=== PATIENT | female | born 1930 | race Caucasian/White ===

== ENCOUNTER → 2017-06-10 | Outpatient (CLI) | payer MEDICARE, BC ==
--- NOTE | 2017-06-10 13:10 | XR ---
EXAMINATION TYPE: XR Hip Complete LT DATE OF EXAM: 06/10/2017 COMPARISON: NONE HISTORY: Pain TECHNIQUE: 2 views submitted FINDINGS: There is no evidence of erosive change or acute fracture. Axial narrowing of the joint space. Hypertrophic change of the acetabulum. Calcifications in pelvis a ppear vascular. IMPRESSION: 1. Moderate arthropathy with no evidence of erosive changes.
== END | disposition home or self-care (01) ==
LOC: RADXRMAIN 12:47
PROVIDERS: ATTEND Internal Medicine Geriatric Medicine
DX: M16.12 Unilateral primary osteoarthritis, left hip (principal)
CPT/HCPCS: 73502

== ENCOUNTER → 2017-08-03 | Outpatient (CLI) | payer MEDICARE, BC ==
[2017-08-03 16:13] LABS: HCT 38.2 % (34.0-46.0); HGB 13.2 gm/dL (11.4-16.0); MCH 30.1 pg (25.0-35.0); MCHC 34.5 g/dL (31.0-37.0); MCV 87.3 fL (80.0-100.0); Platelet Count 236 k/uL (150-450); RBC 4.37 m/uL (3.80-5.40)
[2017-08-03 16:26] LABS: Albumin 4.3 g/dL (3.5-5.0); Calcium 9.9 mg/dL (8.4-10.2); Total Bilirubin 0.6 mg/dL (0.2-1.3); Total Protein 7.3 g/dL (6.3-8.2)
== END | disposition home or self-care (01) ==
LOC: LABWHC1 15:49
PROVIDERS: ATTEND Internal Medicine Interventional Cardiology
DX: I25.10 Atherosclerotic heart disease of native coronary artery without angina pectoris (principal)
CPT/HCPCS: 36415; 80053; 85027

== ENCOUNTER 2017-09-10 14:47 | Emergency (ER) | payer MEDICARE, BC ==
[2017-09-10] MEDS ORDERED: HYDROcodone/APAP 5-325MG 1 EACH TAB PO STA (15:27)
[2017-09-10] MEDS ORDERED: ORPHENADRINE 30 MG/ML 2 ML VIAL IM STA (15:27)
[2017-09-10] MEDS ORDERED: DEXAMETHASONE SOD PHOSPHATE 10 MG/ML 1 ML VIAL IM STA (15:27)
--- NOTE | 2017-09-10 15:50 | ED ---
General Adult HPI - General Chief complaint: Back Pain/Injury Stated complaint: Hip pain Time Seen by Provider: 09/10/17 15:08 Source: patient, RN notes reviewed, old records reviewed Mode of arrival: wheelchair Limitations: no limitations - History of Present Illness Initial comments: This Patient is an 86-year-old female with history of chronic back pain, she reports that she's previously seen Dr. Warner in the past for sciatica. Patient states that she over the past few weeks has been developing worsening pain. She's been taking tramadol for relief of her pain. Patient reports that she has had no abdominal pain. Denies any saddle anesthesias. Pain is worse with range of motion. Patient states that she has had no falls or trauma. She did go to a chiropractor to help with her back pain however she reports seemed like it seemed worse afterwards.Patient denies any recent fever, chills, shortness of breath, chest pain, back pain, abdominal pain, nausea vomiting, numbness or tingling, dysuria or hematuria, constipation or diarrhea, headaches or visual changes, or any other current symptoms - Related Data Previous Rx's Medication Instructions Recorded Cyclobenzaprine [Flexeril] 5 mg PO TID #10 tablet 09/10/17 HYDROcodone/APAP 5-325MG [Maben 1 tab PO Q6HR PRN #10 tab 09/10/17 5-325] Allergies Allergy/AdvReac Type Severity Reaction Status Date / Time Iysawxa-Szf-Nim Reductase AdvReac Unknown Verified 09/10/17 14:59 Inhibitor Review of Systems ROS Statement: Those systems with pertinent positive or pertinent negative responses have been documented in the HPI. ROS Other: All systems not noted in ROS Statement are negative. Past Medical History Additional Past Medical History / Comment(s): back pain History of Any Multi-Drug Resistant Organisms: None Reported Past Surgical History: Bowel Resection, Hysterectomy Past Psychological History: No Psychological Hx Reported Smoking Status: Never smoker Past Alcohol Use History: Occasional Past Drug Use History: None Reported General Exam - General Exam Comments Initial Comments: This patient's an 86-year-old female. Alert and oriented. No acute distress. Limitations: no limitations General appearance: alert, in no apparent distress Head exam: Present: atraumatic, normocephalic, normal inspection Eye exam: Present: normal appearance ENT exam: Present: normal exam Neck exam: Present: normal inspection. Absent: tenderness, meningismus, lymphadenopathy Respiratory exam: Present: normal lung sounds bilaterally. Absent: respiratory distress, wheezes, rales, rhonchi, stridor Cardiovascular Exam: Present: regular rate, normal rhythm, normal heart sounds. Absent: systolic murmur, diastolic murmur, rubs, gallop, clicks GI/Abdominal exam: Present: soft, normal bowel sounds. Absent: distended, tenderness, guarding, rebound, rigid Extremities exam: Present: normal inspection, full ROM, normal capillary refill. Absent: tenderness, pedal edema, joint swelling, calf tenderness Back exam: Present: normal inspection, tenderness (Patient's lumbar spinal tenderness.), other (Patient is neurovascularly intact in distal extremities. Less than 2 second capillary refill. Normal 2+ dorsalis pedis and posterior tibial pulse bilaterally.) Neurological exam: Present: alert, oriented X3, CN II-XII intact Psychiatric exam: Present: normal affect, normal mood Skin exam: Present: warm, dry, intact, normal color. Absent: rash Course Vital Signs 09/10/17 14:56 Temperature 98.2 F Pulse Rate 100 Respiratory 18 Rate Blood Pressure 117/74 O2 Sat by Pulse 95 Oximetry Medical Decision Making - Medical Decision Making A 6-year-old female presents to the lower back pain. She reports going on for few weeks. Worse with movement. She does have some tenderness of her lumbar spine. X-rays were completed. X-rays do show evidence of multiple severe degenerative disc disease as well as anterolisthesis L4-L5. Patient was given IM Decadron and Norflex. One by mouth Maben. I informed Patient of the results of the x-rays. I discussed that she does have significant degenerative disc disease. She was falling up with her back specialist on Wednesday. I will give the Patient a few pain pills and between now and then. Patient history plan will comply. Return parameters were discussed. - Radiology Data Radiology results: report reviewed Scoliotic curvature with severe multilevel degenerative disc disease and facet arthropathy. Grade 1 anterolisthesis L4-L5 and L5-S1. Disposition Clinical Impression: Anterolisthesis, DDD (degenerative disc disease), lumbar Disposition: HOME SELF-CARE Condition: Good Instructions: Chronic Back Pain (ED) Additional Instructions: Patient is advised follow-up with your spinal specialist. Take the medication as prescribed. Follow-up with primary care physician. Return to emergency department if any alarming signs or symptoms occur. Prescriptions: Cyclobenzaprine [Flexeril] 5 mg PO TID #10 tablet HYDROcodone/APAP 5-325MG [Maben 5-325] 1 tab PO Q6HR PRN #10 tab PRN Reason: Pain Is patient prescribed a controlled substance at d/c from ED?: Yes When asked, does pt state using other controlled substances?: Yes If prescribed controlled substance>3 days was MAPS reviewed?: Prescribed <3 Days If opioid is for acute pain is fill amount 7 days or less?: Yes If Rx opioid, was Start Talking consent form obtained?: Yes Referrals: Roge García MD [Primary Care Provider] - 1-2 days Time of Disposition: 16:12
--- NOTE | 2017-09-10 16:03 | XR ---
EXAM TYPE: LUMBAR SPINE X RAY SERIES COMPARISON: NONE HISTORY: Pain TECHNIQUE: 4 views are submitted. FINDINGS: Alignment is anatomic. The pedicles are intact. The transverse processes are intact. Scoliotic cur vature with some vascular calcifications noted. There is a grade 1 anterolisthesis of L4 on L5. Sever e degenerative disc disease at virtually all levels with severe facet arthropathy L4-5 and L5-S1. Gra de 1 anterolisthesis of L5 relative to S1. There is a 3 mm retrolisthesis of L2 relative to L3. Arthr opathy of the interspinous distances noted compatible with [place]'s disease. IMPRESSION: 1. Scoliotic curvature with severe multilevel degenerative disc disease and facet arthropathy. Grade 1 anterolisthesis of L4 on L5 and L5 on S1.
[2017-09-10 16:35] VITALS: BP 137/76; PULSE 91; RESP 16; TEMP 98.7
== END 2017-09-10 16:34 | disposition home or self-care (01) ==
LOC: EC 14:47
DX: M51.36 Other intervertebral disc degeneration, lumbar region (principal); M43.16 Spondylolisthesis, lumbar region; Z88.8 Allergy status to other drugs, medicaments and biological substances
CPT/HCPCS: 72100; 99284; 96372 ×2; J1100; J2360

== ENCOUNTER 2017-10-01 12:10 | Day surgery (SDC) | payer MEDICARE, BC ==
[2017-09-29 09:43] VITALS: BMI 19.8
[~2017-10-01 12:10] MED LIST: LACTATED RINGERS 1,000 ML IV SCH; LIDOCAINE 1% 20 ML VIAL (10MG/ML) FOR IV START INTRADERMA PRN; MIDAZOLAM 2 MG/2 ML VIAL IV PRN
[2017-10-01 13:11] VITALS: RESP 16; TEMP 98.3
[2017-10-01] MEDS ORDERED: PROPOFOL 10 MG/ML 20 ML VIAL IV ONE (13:48)
[2017-10-01] MEDS ORDERED: LIDOCAINE 1% INJ 10MG/ML (20 ML MDV) ONE (13:48)
--- NOTE | 2017-10-01 14:01 | P.PCN ---
Date of Procedure: 10/01/17 Procedure(s) Performed: BRIEF HISTORY: Patient is a 87-year-old, pleasant, white female, scheduled for an upper endoscopy as a part of evaluation of long-standing history of GERD intermittent nausea for the last few months duration. She is been on omeprazole 40 mg daily which helps the heartburn but not nausea. He denies any emesis. No recent weight loss. In view of the persistent nausea she is scheduled for an upper endoscopy to evaluate further. PROCEDURE PERFORMED: Esophagogastroduodenoscopy with biopsy. PREOPERATIVE DIAGNOSIS: Long-standing history of GERD/persistent nausea. IV sedation per anesthesia. PROCEDURE: After informed consent was obtained, the patient was brought into the endoscopy unit. IV sedation was administered by Anesthesia under continuous monitoring. Initially the Olympus GIF-140 video endoscope was inserted into the mouth. Esophagus intubated without any difficulty. It was gradually advanced into the stomach and duodenum and carefully examined. The bulb and the second part of the duodenum appeared normal. Biopsies were done to evaluate for celiac disease The scope at this time was withdrawn to the stomach, adequately insufflated with air, and upon careful examination, mucosa of the antrum, patchy areas of erythema and biopsies were done from this area. The body, cardia and the fundus appeared normal. The scope was then withdrawn into the esophagus. The GE junction was located at 30 cm from the incisors. There was a moderate to large paraesophageal hiatal hernia noted. The GE junction appeared regular with no erythema erosions or ulcerations. The esophagus appeared normal. There were no erosions or ulcerations seen and the patient tolerated the procedure well. IMPRESSION: 1. Large paraesophageal hiatal hernia. 2. Mild antral gastritis. RECOMMENDATIONS: The findings of this examination were discussed with the patient as well as her family. She will follow with the biopsy results. She was advised to continue with omeprazole 40 mg daily and follow antireflux measures.
[2017-10-01 14:32] VITALS: BP 149/77; PULSE 82
== END 2017-10-01 14:54 | disposition home or self-care (01) ==
LOC: ORWHC2ENDO 12:10
PROVIDERS: ATTEND Internal Medicine Gastroenterology
DX: K21.0 Gastro-esophageal reflux disease with esophagitis (principal); K29.50 Unspecified chronic gastritis without bleeding; K44.9 Diaphragmatic hernia without obstruction or gangrene; I34.1 Nonrheumatic mitral (valve) prolapse; I10 Essential (primary) hypertension; Z88.8 Allergy status to other drugs, medicaments and biological substances; Z79.899 Other long term (current) drug therapy; Z90.49 Acquired absence of other specified parts of digestive tract; Z90.710 Acquired absence of both cervix and uterus
CPT/HCPCS: 43239; J2001; J2704; 88305

== ENCOUNTER → 2017-10-29 | Outpatient (CLI) | payer MEDICARE, BC | END | disposition home or self-care (01) | LOC: LABWHC1 08:58 | PROVIDERS: ATTEND Internal Medicine Gastroenterology | DX: R11.0 Nausea (principal) | CPT/HCPCS: 36415; 82533 ==

== ENCOUNTER 2018-05-23 11:03 | Emergency (ER) | payer MEDICARE, BC ==
[2018-05-23 11:20] VITALS: RESP 18
[2018-05-23] MEDS ORDERED: SODIUM CHLORIDE 0.9% 1,000 ML IV STA (12:19)
[2018-05-23] MEDS ORDERED: DIPH,PERTUS(ACELL)TETVAC-LF 0.5 ML VIAL IM ONE (12:20)
[2018-05-23 12:31] LABS: Basophils % (A) 0 %; Eosinophils # (A) 0.2 k/uL (0-0.7); Eosinophils % (A) 2 %; HCT 40.9 % (34.0-46.0); HGB 13.6 gm/dL (11.4-16.0); Lymphocytes # (A) 1.2 k/uL (1.0-4.8); Lymphocytes % (A) 14 %; MCH 29.6 pg (25.0-35.0); MCHC 33.1 g/dL (31.0-37.0); MCV 89.4 fL (80.0-100.0); Mean Platelet Volume 6.3; Monocytes # (A) 0.5 k/uL (0-1.0); Monocytes % (A) 6 %; Neutrophils # (A) 7.1 k/uL (1.3-7.7); Neutrophils % (A) 78 %; Platelet Count 240 k/uL (150-450); RBC 4.58 m/uL (3.80-5.40); RDW 14.3 % (11.5-15.5); WBC 9.1 k/uL (3.8-10.6)
[2018-05-23 12:42] LABS: Partial Thromboplastin Time 24.5 sec (22.0-30.0); Prothrombin Time 10.3 sec (9.0-12.0)
[2018-05-23 12:45] LABS: ALT 29 U/L (9-52); AST 23 U/L (14-36); Albumin 3.9 g/dL (3.5-5.0); Alkaline Phosphatase 84 U/L (38-126); Anion Gap 4 mmol/L; Blood Urea Nitrogen 17 mg/dL (7-17); Calcium 9.9 mg/dL (8.4-10.2); Carbon Dioxide 34 mmol/L (22-30); Chloride 96 mmol/L (98-107); Glucose 118 mg/dL (74-99); Sodium 134 mmol/L (137-145); Total Bilirubin 1.2 mg/dL (0.2-1.3); Total Protein 6.8 g/dL (6.3-8.2)
--- NOTE | 2018-05-23 12:55 | XR ---
EXAMINATION TYPE: XR chest 2V DATE OF EXAM: 05/23/2018 COMPARISON: None HISTORY: 87-year-old female syncope TECHNIQUE: AP and lateral views FINDINGS: The heart appears mildly enlarged. Additional rounded retrocardiac opacity is present. Atheroscleroti c arch calcifications. Hyperinflation with increased retrosternal clear space. No sizable pleural eff usion seen. No jackie consolidation. IMPRESSION: COPD. There seems to be an underlying large hiatal hernia probably with most of the stomach in the lo wer chest. No definite acute process otherwise seen.
--- NOTE | 2018-05-23 12:57 | XR ---
EXAMINATION TYPE: XR forearm LT DATE OF EXAM: 05/23/2018 COMPARISON: NONE HISTORY: 87-year-old female with pain after fall TECHNIQUE: 2 views FINDINGS: No acute fracture or dislocation seen. There is a severely small corticated loose body measuring 3 mm along the volar aspect of the radiocarpal joint. No elbow joint effusion. No acute fracture or dislo cation seen. Generalized tissue atrophy. End-stage degenerative change of the base of the thumb. Some synovial calcification at the wrist and TFC calcifications could be idiopathic or could reflect CPPD . IMPRESSION: No acute osseous abnormality seen. End-stage degenerative change at the base of the thumb. Generalize d tissue atrophy.
--- NOTE | 2018-05-23 12:58 | CT ---
EXAMINATION TYPE: CT brain franklin lopez DATE OF EXAM: 05/23/2018 COMPARISON: None HISTORY: fall, large contusion and laceration above left eye, pain, syncope CT DLP: 1195.7 mGycm Automated exposure control for dose reduction was used. TECHNIQUE: CT scan of the head and cervical spine are performed without contrast. FINDINGS: There is no acute intracranial hemorrhage, mass effect, or midline shift identified. The ventricles and sulci are within normal limits in size. The globes are intact and the visualized sin uses are clear. There is a large cephalohematoma present over the left frontal region extending towar ds the convexity. Periventricular white matter shows patchy low attenuation. Cerebral vascular calcif ications are present. Cortical atrophy is likely age-related. Cervical spine is visualized in its entirety from C1 through upper thoracic levels and demonstrates d egenerative disc disease, facet arthropathy, there is multilevel listhesis and spondylosis, anterolis thesis grade 1 4, C5-6, C7-T1. Loss of disc height present at the intervertebral levels C4-5 and C5-6 and C6-7.. Prevertebral soft tissue appears within normal limits. The C1-C2 articulation is unrema rkable. Multilevel facet arthropathy. The level foraminal encroachment noted. Possible thoracic scol iosis noted. Carotid artery calcifications are present. Temporomandibular joints show arthropathy chelsea nge. IMPRESSION: 1. There is no acute fracture or dislocation evident in the cervical spine. 2. No acute intracranial hemorrhage, mass effect, or midline shift is seen.
--- NOTE | 2018-05-23 13:08 | ED ---
Wound/Laceration HPI - General Chief Complaint: Wound/Laceration Stated Complaint: fell/hit head Time Seen by Provider: 05/23/18 11:52 Source: patient, RN notes reviewed, old records reviewed Mode of arrival: wheelchair Limitations: no limitations - History of Present Illness Initial Comments: Patient is a 89-year-old female present today with complaints of slipping and falling hitting her head. She states that she stood up too quickly and felt dizzy. Patient reports she had on the cabinet. Patient has a laceration and contusion of the left side of her forehead. Patient denies any loss of consciousness Patient denies neck pain. She reports that she also hit her left forearm. She denies any other complaints. - Related Data Home Medications Medication Instructions Recorded Confirmed Calcium Carb/Vitamin D3/Vit K1 1 tab PO DAILY 09/29/17 05/23/18 [Citracal Soft Chew] Carvedilol [Coreg] 6.25 mg PO HS 09/29/17 05/23/18 Vit C/E/Zn/Coppr/Lutein/Zeaxan 2 cap PO DAILY 09/29/17 05/23/18 [Preservision Areds 2 Softgel] Aspirin EC [Ecotrin Low Dose] 81 mg PO DAILY 05/23/18 05/23/18 Losartan/Hydrochlorothiazide 1 tab PO DAILY 05/23/18 05/23/18 [Losartan-Hctz 100-25 mg Tab] Meclizine [Antivert] 12.5 mg PO TID PRN 05/23/18 05/23/18 Pantoprazole [Protonix] 40 mg PO DAILY 05/23/18 05/23/18 traMADol HCL [Ultram] 50 mg PO TID PRN 05/23/18 05/23/18 Allergies Allergy/AdvReac Type Severity Reaction Status Date / Time Ozbqyhl-Kuk-Lnk Reductase AdvReac "MAKES ME Verified 05/23/18 12:39 Inhibitor FEEL SICK" Review of Systems ROS Statement: Those systems with pertinent positive or pertinent negative responses have been documented in the HPI. ROS Other: All systems not noted in ROS Statement are negative. Past Medical History Past Medical History: GERD/Reflux, Hypertension Additional Past Medical History / Comment(s): back pain History of Any Multi-Drug Resistant Organisms: None Reported Past Surgical History: Adenoidectomy, Appendectomy, Bowel Resection, Heart Catheterization, Hysterectomy, Tonsillectomy Additional Past Surgical History / Comment(s): COLONOSCOPY. BILAT CATARACT REMOVED Past Anesthesia/Blood Transfusion Reactions: No Reported Reaction Past Psychological History: No Psychological Hx Reported Smoking Status: Never smoker Past Alcohol Use History: Occasional Past Drug Use History: None Reported - Past Family History Mother Family Medical History: No Reported History General Exam - General Exam Comments Initial Comments: 87-year-old female. Alert and oriented. No distress. Limitations: no limitations General appearance: alert, in no apparent distress, other ( is a contusion over her left forehead.) Head exam: Present: atraumatic, normocephalic, normal inspection Eye exam: Present: normal appearance, PERRL, EOMI. Absent: scleral icterus, conjunctival injection, periorbital swelling ENT exam: Present: normal exam, mucous membranes moist Neck exam: Present: normal inspection. Absent: tenderness, meningismus, lymphadenopathy Respiratory exam: Present: normal lung sounds bilaterally. Absent: respiratory distress, wheezes, rales, rhonchi, stridor Cardiovascular Exam: Present: regular rate, normal rhythm, normal heart sounds. Absent: systolic murmur, diastolic murmur, rubs, gallop, clicks GI/Abdominal exam: Present: soft, normal bowel sounds. Absent: distended, tenderness, guarding, rebound, rigid Extremities exam: Present: normal inspection, full ROM, normal capillary refill. Absent: tenderness, pedal edema, joint swelling, calf tenderness Back exam: Present: normal inspection Neurological exam: Present: alert, oriented X3, CN II-XII intact Psychiatric exam: Present: normal affect, normal mood Skin exam: Present: warm, dry, intact, normal color. Absent: rash Course Vital Signs 05/23/18 05/23/18 11:15 14:35 Temperature 98.4 F 98.0 F Pulse Rate 89 82 Respiratory 18 18 Rate Blood Pressure 176/81 154/86 O2 Sat by Pulse 98 97 Oximetry Medical Decision Making - Medical Decision Making 7-year-old female presents today after falling and hitting her head on a cabinet. Patient has a small abrasion over the forehead measuring to 70s. This was cleansed with iodine and closed with Dermabond. CT of the brain and C- spine are negative for acute process. EKG shows no acute changes. Laboratory was unremarkable Patient is given a liter bolus. Discussed that she likely stood up too quickly with this happened. Patient agrees. I discussed if the patient's family Patient felt comfortable to be discharged home with close monitoring with head injury instructions. Family agrees. I discussed strict return parameters. All questions were answered. - Lab Data Result diagrams: 05/23/18 12:14 05/23/18 12:14 Lab Results 05/23/18 05/23/18 05/23/18 Range/Units 12:14 12:14 12:14 WBC 9.1 (3.8-10.6) k/uL RBC 4.58 (3.80-5.40) m/uL Hgb 13.6 (11.4-16.0) gm/dL Hct 40.9 (34.0-46.0) % MCV 89.4 (80.0-100.0) fL MCH 29.6 (25.0-35.0) pg MCHC 33.1 (31.0-37.0) g/dL RDW 14.3 (11.5-15.5) % Plt Count 240 (150-450) k/uL Neutrophils % 78 % Lymphocytes % 14 % Monocytes % 6 % Eosinophils % 2 % Basophils % 0 % Neutrophils # 7.1 (1.3-7.7) k/uL Lymphocytes # 1.2 (1.0-4.8) k/uL Monocytes # 0.5 (0-1.0) k/uL Eosinophils # 0.2 (0-0.7) k/uL Basophils # 0.0 (0-0.2) k/uL PT 10.3 (9.0-12.0) sec INR 1.0 (<1.2) APTT 24.5 (22.0-30.0) sec Sodium 134 L (137-145) mmol/L Potassium 4.0 (3.5-5.1) mmol/L Chloride 96 L (98-107) mmol/L Carbon Dioxide 34 H (22-30) mmol/L Anion Gap 4 mmol/L BUN 17 (7-17) mg/dL Creatinine 0.68 (0.52-1.04) mg/dL Est GFR (CKD-EPI)AfAm >90 (>60 ml/min/1.73 sqM) Est GFR (CKD-EPI)NonAf 78 (>60 ml/min/1.73 sqM) Glucose 118 H (74-99) mg/dL Calcium 9.9 (8.4-10.2) mg/dL Total Bilirubin 1.2 (0.2-1.3) mg/dL AST 23 (14-36) U/L ALT 29 (9-52) U/L Alkaline Phosphatase 84 (38-126) U/L Troponin I (0.000-0.034) ng/mL Total Protein 6.8 (6.3-8.2) g/dL Albumin 3.9 (3.5-5.0) g/dL 05/23/18 Range/Units 12:14 WBC (3.8-10.6) k/uL RBC (3.80-5.40) m/uL Hgb (11.4-16.0) gm/dL Hct (34.0-46.0) % MCV (80.0-100.0) fL MCH (25.0-35.0) pg MCHC (31.0-37.0) g/dL RDW (11.5-15.5) % Plt Count (150-450) k/uL Neutrophils % % Lymphocytes % % Monocytes % % Eosinophils % % Basophils % % Neutrophils # (1.3-7.7) k/uL Lymphocytes # (1.0-4.8) k/uL Monocytes # (0-1.0) k/uL Eosinophils # (0-0.7) k/uL Basophils # (0-0.2) k/uL PT (9.0-12.0) sec INR (<1.2) APTT (22.0-30.0) sec Sodium (137-145) mmol/L Potassium (3.5-5.1) mmol/L Chloride (98-107) mmol/L Carbon Dioxide (22-30) mmol/L Anion Gap mmol/L BUN (7-17) mg/dL Creatinine (0.52-1.04) mg/dL Est GFR (CKD-EPI)AfAm (>60 ml/min/1.73 sqM) Est GFR (CKD-EPI)NonAf (>60 ml/min/1.73 sqM) Glucose (74-99) mg/dL Calcium (8.4-10.2) mg/dL Total Bilirubin (0.2-1.3) mg/dL AST (14-36) U/L ALT (9-52) U/L Alkaline Phosphatase (38-126) U/L Troponin I <0.012 (0.000-0.034) ng/mL Total Protein (6.3-8.2) g/dL Albumin (3.5-5.0) g/dL 05/23/18 15:05 EKG performed at 1225 shows sinus rhythm with occasional PVCs. Ventricular rate of 85 beats were minute. Pulse 154 ms. QRS duration is 104 ms. QT QTC 370/449 ms. - Radiology Data Radiology results: report reviewed No acute fracture dislocation of the cervical spine. No acute intracranial hemorrhage or midline shift seen. Disposition Clinical Impression: Fall, Head injury, Forearm contusion Disposition: HOME SELF-CARE Condition: Good Instructions (If sedation given, give patient instructions): Fall Prevention for Older Adults (ED), Head Injury (ED) Additional Instructions: Patient has have close follow-up with her primary care physician. Patient s hould be monitored for the next 24 hours. There is any signs of altered mental status return to the emergency department at once. Patient should rest, remain hydrated. Keep the wound clean. Is patient prescribed a controlled substance at d/c from ED?: No Referrals: Roge García MD [Primary Care Provider] - 1-2 days Time of Disposition: 14:01
[2018-05-23] MEDS ORDERED: TOPICAL SKIN ADHESIVE 1 EACH AMP TOPICAL ONE (13:40)
[2018-05-23] MEDS ORDERED: ACETAMINOPHEN TAB 500 MG TAB PO STA (14:00)
[2018-05-23] MEDS ORDERED: KETOROLAC 30 MG/ML 1 ML VIAL IVP STA (14:00)
[2018-05-23 14:35] VITALS: BP 154/86; PULSE 82; TEMP 98
--- NOTE | 2018-05-24 08:42 | CDI ---
Documentation Clarification OP Dear Judy LUQUE PA-C, PAC Please provide forehead abrasion repair length. Thank you, Isaiah Rendon Scada Technician If you have any questions, please contact Passenger Service Supervisor at [phone] [facility]
== END 2018-05-23 14:37 | disposition home or self-care (01) ==
LOC: EC 11:03
DX: S00.81XA Abrasion of other part of head, initial encounter (principal); S50.12XA Contusion of left forearm, initial encounter; K21.9 Gastro-esophageal reflux disease without esophagitis; I10 Essential (primary) hypertension; Z95.818 Presence of other cardiac implants and grafts; Z79.82 Long term (current) use of aspirin; Z79.899 Other long term (current) drug therapy; Z88.8 Allergy status to other drugs, medicaments and biological substances; Z23 Encounter for immunization; W01.190A Fall on same level from slipping, tripping and stumbling with subsequent striking against furniture, initial encounter; Y92.009 Unspecified place in unspecified non-institutional (private) residence as the place of occurrence of the external cause
CPT/HCPCS: 99284; 12011; 96374; 96361; 90471; 36415; 93005; 80053; 84484; 85025; 85610; 85730; 73090; 71046; 72125; 70450; 90715; J1885

== ENCOUNTER → 2019-04-24 | Outpatient (CLI) | payer MEDICARE, BC ==
--- NOTE | 2019-04-24 14:07 | XR ---
EXAMINATION TYPE: XR abdomen 2V DATE OF EXAM: 04/24/2019 COMPARISON: NONE HISTORY: Constipation TECHNIQUE: One view abdominal series FINDINGS: The osseous structures are intact. The bowel gas pattern is nonspecific. Lung bases are clear. Denise lar calcifications are seen and there are vascular calcifications. Arthropathy of the hips. Scoliosis with degenerative change of the spine. Air-fluid levels are seen in the right lower abdomen. IMPRESSION: 1. Nonspecific abdomen. Air-fluid in the right lower abdomen and upper pelvis. Correlate for ileus, enteritis although a partial obstruction not entirely excluded.
== END | disposition home or self-care (01) ==
LOC: RADXRMAIN 13:26
PROVIDERS: ATTEND Internal Medicine Geriatric Medicine
DX: K59.00 Constipation, unspecified (principal)
CPT/HCPCS: 74019

== ENCOUNTER 2019-04-28 15:30 | Emergency (ER) | payer MEDICARE, BC ==
[2019-04-28 15:36] VITALS: TEMP 98.1
[2019-04-28] MEDS ORDERED: SODIUM CHLORIDE 0.9% 1,000 ML IV STA (17:14)
--- NOTE | 2019-04-28 17:16 | ED ---
Abdominal Pain HPI - General Chief Complaint: Abdominal Pain Stated Complaint: Abd Pain Time Seen by Provider: 04/28/19 16:30 Source: patient, RN notes reviewed, old records reviewed Mode of arrival: ambulatory Limitations: no limitations - History of Present Illness Initial Comments: This is an 88-year-old female to the ER for evaluation of abdominal pain history of constipation abdominal surgery secondary to diverticulosis has had bowel resection although years ago. Positive nausea no vomiting decreased appetite increased bloating no bowel movement since Wednesday only bowel movements or possible which is denying any fevers. No other complaints MD Complaint: abdominal pain -: days(s) Location: diffuse, LLQ Radiation: LLQ Migration to: LLQ Severity: moderate Severity scale (1-10): 6 Quality: aching Consistency: constant Improves With: nothing Worsens With: nothing Associated Symptoms: nausea, anorexia - Related Data Home Medications Medication Instructions Recorded Confirmed Calcium Carb/Vitamin D3/Vit K1 1 tab PO DAILY 09/29/17 05/23/18 [Citracal Soft Chew] Carvedilol [Coreg] 6.25 mg PO HS 09/29/17 05/23/18 Vit C/E/Zn/Coppr/Lutein/Zeaxan 2 cap PO DAILY 09/29/17 05/23/18 [Preservision Areds 2 Softgel] Aspirin EC [Ecotrin Low Dose] 81 mg PO DAILY 05/23/18 05/23/18 Losartan/Hydrochlorothiazide 1 tab PO DAILY 05/23/18 05/23/18 [Losartan-Hctz 100-25 mg Tab] Meclizine [Antivert] 12.5 mg PO TID PRN 05/23/18 05/23/18 Pantoprazole [Protonix] 40 mg PO DAILY 05/23/18 05/23/18 traMADol HCL [Ultram] 50 mg PO TID PRN 05/23/18 05/23/18 Allergies Allergy/AdvReac Type Severity Reaction Status Date / Time [id number] Reductase AdvReac "MAKES ME Verified 04/28/19 15:32 Inhibitor FEEL SICK" Review of Systems ROS Statement: Those systems with pertinent positive or pertinent negative responses have been documented in the HPI. ROS Other: All systems not noted in ROS Statement are negative. Past Medical History Past Medical History: GERD/Reflux, Hypertension Additional Past Medical History / Comment(s): back pain History of Any Multi-Drug Resistant Organisms: None Reported Past Surgical History: Adenoidectomy, Appendectomy, Bowel Resection, Heart C atheterization, Hysterectomy, Tonsillectomy Additional Past Surgical History / Comment(s): COLONOSCOPY. BILAT CATARACT REMOVED, skin cancer removal L arm Past Anesthesia/Blood Transfusion Reactions: No Reported Reaction Past Psychological History: No Psychological Hx Reported Smoking Status: Never smoker Past Alcohol Use History: Occasional Past Drug Use History: None Reported - Past Family History Mother Family Medical History: No Reported History General Exam Limitations: no limitations General appearance: alert, in no apparent distress Head exam: Present: atraumatic, normocephalic, normal inspection Eye exam: Present: normal appearance, PERRL, EOMI. Absent: scleral icterus, conjunctival injection, periorbital swelling ENT exam: Present: normal exam, mucous membranes moist Neck exam: Present: normal inspection. Absent: tenderness, meningismus, lymphadenopathy Respiratory exam: Present: normal lung sounds bilaterally. Absent: respiratory distress, wheezes, rales, rhonchi, stridor Cardiovascular Exam: Present: regular rate, normal rhythm, normal heart sounds. Absent: systolic murmur, diastolic murmur, rubs, gallop, clicks GI/Abdominal exam: Present: soft, normal bowel sounds. Absent: distended, tenderness, guarding, rebound, rigid Extremities exam: Present: normal inspection, full ROM, normal capillary refill. Absent: tenderness, pedal edema, joint swelling, calf tenderness Back exam: Present: normal inspection Neurological exam: Present: alert, oriented X3, CN II-XII intact Psychiatric exam: Present: normal affect, normal mood Skin exam: Present: warm, dry, intact, normal color. Absent: rash Course Vital Signs 04/28/19 04/28/19 15:32 18:28 Temperature 98.1 F Pulse Rate 99 94 Respiratory 18 16 Rate Blood Pressure 207/74 143/90 O2 Sat by Pulse 99 98 Oximetry - Reevaluation(s) Reevaluation #1: 04/28/19 17:16 Medical records reviewed including outpatient x-rays Reevaluation #2: 04/28/19 19:45 Patient has good resolution with her enema Medical Decision Making - Medical Decision Making 88 Females to the ED for constipation chronic constipation will increased bowel regimen patient can be discharged home - Lab Data Result diagrams: 04/28/19 15:49 04/28/19 15:49 Lab Results 04/28/19 04/28/19 04/28/19 Range/Units 15:49 15:49 15:49 WBC 7.8 (3.8-10.6) k/uL RBC 4.99 (3.80-5.40) m/uL Hgb 14.9 (11.4-16.0) gm/dL Hct 45.0 (34.0-46.0) % MCV 90.3 (80.0-100.0) fL MCH 29.8 (25.0-35.0) pg MCHC 33.0 (31.0-37.0) g/dL RDW 13.8 (11.5-15.5) % Plt Count 277 (150-450) k/uL Neutrophils % 59 % Lymphocytes % 26 % Monocytes % 7 % Eosinophils % 4 % Basophils % 0 % Neutrophils # 4.6 (1.3-7.7) k/uL Lymphocytes # 2.1 (1.0-4.8) k/uL Monocytes # 0.6 (0-1.0) k/uL Eosinophils # 0.3 (0-0.7) k/uL Basophils # 0.0 (0-0.2) k/uL Sodium 133 L (137-145) mmol/L Potassium 4.7 (3.5-5.1) mmol/L Chloride 95 L (98-107) mmol/L Carbon Dioxide 29 (22-30) mmol/L Anion Gap 9 mmol/L BUN 18 H (7-17) mg/dL Creatinine 0.75 (0.52-1.04) mg/dL Est GFR (CKD-EPI)AfAm 82 (>60 ml/min/1.73 sqM) Est GFR (CKD-EPI)NonAf 71 (>60 ml/min/1.73 sqM) Glucose 110 H (74-99) mg/dL Calcium 10.3 H (8.4-10.2) mg/dL Phosphorus (2.5-4.5) mg/dL Magnesium (1.6-2.3) mg/dL Total Bilirubin 0.8 (0.2-1.3) mg/dL AST 34 (14-36) U/L ALT 20 (4-34) U/L Alkaline Phosphatase 92 (38-126) U/L Total Protein 8.5 H (6.3-8.2) g/dL Albumin 4.9 (3.5-5.0) g/dL Amylase 67 (30-110) U/L Lipase 123 (23-300) U/L Urine Color Colorless Urine Appearance Clear (Clear) Urine pH 7.0 (5.0-8.0) Ur Specific [place] 1.006 (1.001-1.035) Urine Protein Negative (Negative) Urine Glucose (UA) Negative (Negative) Urine Ketones Negative (Negative) Urine Blood Small H (Negative) Urine Nitrite Negative (Negative) Urine Bilirubin Negative (Negative) Urine Urobilinogen <2.0 (<2.0) mg/dL Ur Leukocyte Esterase Negative (Negative) Urine RBC 7 H (0-5) /hpf Urine WBC 2 (0-5) /hpf Ur Squamous Epith Cells <1 (0-4) /hpf 04/28/19 Range/Units 15:49 WBC (3.8-10.6) k/uL RBC (3.80-5.40) m/uL Hgb (11.4-16.0) gm/dL Hct (34.0-46.0) % MCV (80.0-100.0) fL MCH (25.0-35.0) pg MCHC (31.0-37.0) g/dL RDW (11.5-15.5) % Plt Count (150-450) k/uL Neutrophils % % Lymphocytes % % Monocytes % % Eosinophils % % Basophils % % Neutrophils # (1.3-7.7) k/uL Lymphocytes # (1.0-4.8) k/uL Monocytes # (0-1.0) k/uL Eosinophils # (0-0.7) k/uL Basophils # (0-0.2) k/uL Sodium (137-145) mmol/L Potassium (3.5-5.1) mmol/L Chloride (98-107) mmol/L Carbon Dioxide (22-30) mmol/L Anion Gap mmol/L BUN (7-17) mg/dL Creatinine (0.52-1.04) mg/dL Est GFR (CKD-EPI)AfAm (>60 ml/min/1.73 sqM) Est GFR (CKD-EPI)NonAf (>60 ml/min/1.73 sqM) Glucose (74-99) mg/dL Calcium (8.4-10.2) mg/dL Phosphorus 4.3 (2.5-4.5) mg/dL Magnesium 2.1 (1.6-2.3) mg/dL Total Bilirubin (0.2-1.3) mg/dL AST (14-36) U/L ALT (4-34) U/L Alkaline Phosphatase (38-126) U/L Total Protein (6.3-8.2) g/dL Albumin (3.5-5.0) g/dL Amylase (30-110) U/L Lipase (23-300) U/L Urine Color Urine Appearance (Clear) Urine pH (5.0-8.0) Ur Specific [place] (1.001-1.035) Urine Protein (Negative) Urine Glucose (UA) (Negative) Urine Ketones (Negative) Urine Blood (Negative) Urine Nitrite (Negative) Urine Bilirubin (Negative) Urine Urobilinogen (<2.0) mg/dL Ur Leukocyte Esterase (Negative) Urine RBC (0-5) /hpf Urine WBC (0-5) /hpf Ur Squamous Epith Cells (0-4) /hpf - Radiology Data Radiology results: report reviewed (CT of the abdomen and pelvis shows no acute disease), image reviewed Disposition Clinical Impression: Constipation, Abdominal pain Disposition: HOME SELF-CARE Condition: Good Instructions (If sedation given, give patient instructions): Abdominal Pain (ED), Constipation (ED) Is patient prescribed a controlled substance at d/c from ED?: No Referrals: Roge García MD [Primary Care Provider] - 1-2 days
[2019-04-28 17:21] LABS: Basophils % (A) 0 %; Eosinophils # (A) 0.3 k/uL (0-0.7); Eosinophils % (A) 4 %; HGB 14.9 gm/dL (11.4-16.0); Lymphocytes # (A) 2.1 k/uL (1.0-4.8); Lymphocytes % (A) 26 %; MCH 29.8 pg (25.0-35.0); MCV 90.3 fL (80.0-100.0); Mean Platelet Volume 8.1; Monocytes # (A) 0.6 k/uL (0-1.0); Monocytes % (A) 7 %; Neutrophils # (A) 4.6 k/uL (1.3-7.7); Neutrophils % (A) 59 %; Platelet Count 277 k/uL (150-450); RBC 4.99 m/uL (3.80-5.40); RDW 13.8 % (11.5-15.5); WBC 7.8 k/uL (3.8-10.6)
[2019-04-28 17:30] LABS: Appearance,Urine Clear (Clear); Bilirubin,Urine Negative (Negative); Blood,Urine Small (Negative); Color,Urine Colorless; Glucose,Urine (UA) Negative (Negative); Ketones,Urine Negative (Negative); Leukocyte Esterase,Urine Negative (Negative); Nitrite,Urine Negative (Negative); Protein,Urine Negative (Negative); RBC,Urine 7 /hpf (0-5); Specific Gravity,Urine 1.006 (1.001-1.035); Squamous Epithelial Cell,Urine <1 /hpf (0-4); Urobilinogen,Urine <2.0 mg/dL (<2.0); WBC,Urine 2 /hpf (0-5)
[2019-04-28 17:35] LABS: Albumin 4.9 g/dL (3.5-5.0); Calcium 10.3 mg/dL (8.4-10.2); Potassium 4.7 mmol/L (3.5-5.1); Total Bilirubin 0.8 mg/dL (0.2-1.3); Total Protein 8.5 g/dL (6.3-8.2)
--- NOTE | 2019-04-28 18:23 | CT ---
EXAMINATION TYPE: CT abdomen pelvis w con DATE OF EXAM: 04/28/2019 COMPARISON: None HISTORY: Generalized pain and constipation. CT DLP: 503.1 mGycm Automated exposure control for dose reduction was used. CONTRAST: Performed with IV Contrast, patient injected with 100 mL of Isovue 300. Multiple axial sections were obtained from the diaphragm to the floor the pelvis with intravenous con trast. There is large hiatal hernia. Abdominal aorta is atheromatous. There is no pericardial effusion. Ther e is mild subsegmental atelectasis at the lung bases. Liver shows no focal defect. Gallbladder appears normal. Spleen is intact. There is no pancreatic mas s. There is no adrenal mass. Kidneys show satisfactory contrast opacification. There is no hydronephr osis. Ureters are not dilated. There is normal excretion on the delayed images. Bladder distends smoo thly. There is no inguinal hernia. There is no free fluid in the pelvis. There is no evidence of pelvic mass. There is hysterectomy. The re is no mesenteric edema. There is no ascites or free air. There is no sign of a bowel obstruction. Appendix is not seen. There is clip in the right lower quadrant that could be from appendectomy. There is a first-degree L4-5 spondylolisthesis. There is multilevel degenerative disc space narrowing in the lumbar spine. There is first-degree L5-S1 spondylolisthesis. Bony pelvis is intact. There is developmentally adequate spinal canal. IMPRESSION: Large hiatal hernia. Mild subsegmental atelectasis. No acute abnormality within the abdomen pelvis. D egenerative first-degree L4-5 and L5-S1 spondylolisthesis.
[2019-04-28] MEDS ORDERED: SENNOSIDES-DOCUSATE SODIUM 1 EACH TAB PO STA (18:28)
[2019-04-28] MEDS ORDERED: KETOROLAC 30 MG/ML 1 ML VIAL IVP STA (18:28)
[2019-04-28 18:41] LABS: Magnesium 2.1 mg/dL (1.6-2.3); Phosphorus 4.3 mg/dL (2.5-4.5)
[2019-04-28 20:03] VITALS: BP 138/89; PULSE 91; RESP 18
== END 2019-04-28 20:06 | disposition home or self-care (01) ==
LOC: EC 15:30
DX: K59.09 Other constipation (principal); R11.0 Nausea; R63.0 Anorexia; I10 Essential (primary) hypertension; K21.9 Gastro-esophageal reflux disease without esophagitis; Z88.8 Allergy status to other drugs, medicaments and biological substances; Z79.899 Other long term (current) drug therapy; Z90.49 Acquired absence of other specified parts of digestive tract; Z98.890 Other specified postprocedural states; Z85.828 Personal history of other malignant neoplasm of skin
CPT/HCPCS: 99284; 96374; 96361 ×2; 36415; 80053; 82150; 83690; 83735; 84100; 85025; 81001; 74177; J1885; Q9967